=== PATIENT | female | born 1930 | race Caucasian/White ===

== ENCOUNTER 2016-10-01 00:16 | Emergency (ER) | payer MEDICARE, BC ==
[2016-10-01 00:32] VITALS: BP 160/76
--- OUTSIDE RECORDS SUMMARY | 2016-10-01 00:46 | XMS REPORT | Continuity of Care Document ---
:1930 Author Organization [facility] ([facility]) Address [address] [place] [address] Phone [phone] Care Team Providers Name Role Phone Héctor Monroe Primary Care Provider [phone] Source Comments This disclosure is being made pursuant to the Care Everywhere program, applicable federal and state laws, and may not contain all informaitonavailable regarding this patient.[facility] ([facility]) Active Allergies and Adverse Reactions Allergen Noted Date Severity Reactions Comments Amoxicillin 07/01/2016 Rash Cephalosporins 07/01/2016 Rash Ciprofloxacin 07/01/2016 Rash Clindamycin 07/01/2016 Rash Penicillins 08/14/2010 Nausea & Vomiting,Flushing Prednisone Urticaria (Hives),Rash Shellfish Derived 07/01/2016 Rash Tramadol 07/01/2016 Rash Current Medications Prescription Sig. Disp. Refills Start Date End Date Status clopidogrel (PLAVIX) 75 take 75 mg by mouth Active mg tablet daily. aspirin 325 mg tablet take 325 mg by mouth Active daily. metFORMIN (GLUCOPHAGE) take 500 mg by mouth Active 500 mg tablet 2 times daily with meals. ropinirole (REQUIP) 1 mg take 1 mg by mouth 3 Active tablet times daily. gabapentin (NEURONTIN) Take 300 mg by mouth Active 300 mg tablet 3 times daily. ACETAMINOPHEN (TYLENOL Take by mouth as Active ARTHRITIS PO) needed. rosuvastatin (CRESTOR) Take 10 mg by mouth Active 10 mg tablet daily. isosorbide mononitrate 90 mg daily. 09/13/2014 Active (IMDUR) 30 mg CR tablet glipiZIDE 5 mg XL tablet take 1 tablet (5MG) 01/22/2011 Active by oral route every day with breakfast metoPROLol succinate 25 take 0.5 Tablet 05/19/2012 Active mg XL tablet (12.5MG) by oral route every day ramipril 5 mg capsule take 1 capsule by 09/13/2014 Active oral route every day torsemide 10 mg tablet take 5 tablet by 09/13/2014 Active ORAL route every day clopidogrel (PLAVIX) 75 take 1 tablet (75MG) 11/20/2010 Active mg tablet by oral route every day rosuvastatin (CRESTOR) take 1 tablet (10MG) 01/22/2011 Active 10 mg tablet by oral route every day warfarin 5 mg tablet Take 5 mg by mouth Active daily. Active Problems Problem Noted Date Dysplasia of cervix, unspecified 07/11/2004 Other screening mammogram 03/27/2001 Dysplasia of Cervix 03/27/2001 Overview: problem hand tire trimmer replacement for go-live --MAL Most Recent Encounters Date Type Specialty Providers Description 09/21/2016 Office Visit Family Practice Default, Other Billg - Dx: Swelling of left Defo hand (Primary Dx) Neeta Montesinos ARNP 07/01/2016 Office Visit Family Practice Lucie Landeros MD Dx: Hordeolum externum David Narvaez, left upper eyelid PA-C (Primary Dx) Social History Tobacco Use Types Packs/Day Years Used Date Never Smoker Smokeless Tobacco: Never Used Last Filed Vital Signs Vital Sign Reading Time Taken Blood Pressure 112/74 09/21/2016 2:32 PM OLAP DEVELOPER Pulse 75 09/21/2016 2:32 PM OLAP DEVELOPER Temperature 36.5 C (97.7 F) 09/21/2016 2:32 PM OLAP DEVELOPER Respiratory Rate 18 09/21/2016 2:32 PM OLAP DEVELOPER Height 1.61 m (5' 3.39") 08/15/2010 2:27 PM OLAP DEVELOPER Weight 102.059 kg (225 lb) 09/21/2016 2:32 PM OLAP DEVELOPER Body Mass Index 39.37 09/21/2016 2:32 PM OLAP DEVELOPER Oxygen Saturation 96% 09/21/2016 2:32 PM OLAP DEVELOPER Plan of Care Date Type Specialty Providers Description 11/21/2016 Wait List Med Rheumatology 11/21/2016 Appointment Med Rheumatology Ranjeet Oh MD Chief Comp: Patient [address] [place] [address] Visit [phone] (Fax) Health Maintenance Due Date Last Done Comments Hepatitis B Vaccine (1 of 3 - Primary 1930 Series) Tdap Vaccine 1943 Td Vaccine 1950 Colonoscopy 1982 Zoster Vaccine 1992 Osteoporosis Screening (DXA Bone Density) 1997 Pneumococcal Vaccine (1 of 2 - PCV13) 1997 Lipid Disorder Screening 08/15/2015 08/15/2010, 01/24/2000 Influenza Vaccine: Seasonal (#1) 03/12/2016 Results from Last 3 Months Not on file
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
== END 2016-10-01 01:45 | disposition home or self-care (01) ==
LOC: ER 00:16
PROC: 0HQUXZZ (ICD-10-PCS; principal; 2016-10-01)
DX: S21.012A Laceration without foreign body of left breast, initial encounter (principal); W01.110A Fall on same level from slipping, tripping and stumbling with subsequent striking against sharp glass, initial encounter; Y92.009 Unspecified place in unspecified non-institutional (private) residence as the place of occurrence of the external cause

== ENCOUNTER 2017-03-03 17:12 | Observation (INO) | payer MEDICARE, BC ==
--- NOTE | 2017-03-03 17:32 | ERNOTE ---
Chest Pain/Cardiac HPI Date of Service: 03/03/17 Chief Complaint: Chest Pain Time Seen by Provider: 03/03/17 17:31 Source: patient, family Exam Limitations: no limitations Immunizations: IMMUNIZATION HX Immunizations Up to Date Yes History of Influenza Vaccine Yes Allergies/Adverse Reactions: Allergies amoxicillin [Amoxicillin] Allergy (Severe, Verified 03/03/17 17:26) Anaphylaxis cephalexin [Cephalexin] Allergy (Severe, Verified 03/03/17 17:26) Anaphylaxis ciprofloxacin [From Cipro] Allergy (Severe, Verified 03/03/17 17:26) Anaphylaxis ciprofloxacin HCl [From Cipro] Allergy (Severe, Verified 03/03/17 17:26) Anaphylaxis prednisone Allergy (Severe, Verified 03/03/17 17:26) Anaphylaxis shellfish derived Allergy (Severe, Verified 03/03/17 17:26) Anaphylaxis tramadol HCl [From Ultram] Allergy (Severe, Verified 03/03/17 17:26) Anaphylaxis Penicillins Allergy (Verified 03/03/17 17:26) butorphanol tartrate [From Stadol] Adverse Reaction (Verified 03/03/17 17:26) Other Home Medications: HOME MEDICATIONS Allopurinol [Zyloprim] 300 mg PO BID 03/03/17 [Last Taken Unknown] Amiodarone HCl [Cordarone] 200 mg PO DAILY 03/03/17 [Last Taken Unknown] Cetirizine HCl [Zyrtec] 10 mg PO DAILY 03/03/17 [Last Taken Unknown] Cholecalciferol [Vitamin D] 1,000 unit PO DAILY 03/03/17 [Last Taken Unknown] Colchicine [Colcrys] 0.6 mg PO DAILY 03/03/17 [Last Taken Unknown] Ferrous Gluconate 325 mg PO DAILY 03/03/17 [Last Taken Unknown] Fluconazole [Diflucan] 150 mg PO DAILY 03/03/17 [Last Taken Unknown] HYDROcodone/ACETAMINOPHEN [[place] 5-325] 1 - 2 tab PO Q6H PRN 03/03/17 [Last Taken Unknown] Levothyroxine Sodium [Levo-T] 25 mcg PO DAILY 03/03/17 [Last Taken Unknown] Metoprolol Succinate [Toprol Xl] 12.5 mg PO DAILY 03/03/17 [Last Taken Unknown] Mupirocin Calcium [Bactroban] 15 gm TP DAILY 03/03/17 [Last Taken Unknown] Ramipril [Altace] 5 mg PO DAILY 03/03/17 [Last Taken Unknown] Rosuvastatin Calcium [Crestor] 10 mg PO DAILY 03/03/17 [Last Taken Unknown] [place] Oil/[place]-3 Fatty Acids [Fish Oil] 1,200 mg PO BID 03/03/17 [Last Taken Unknown] Torsemide 100 mg PO DAILY 03/03/17 [Last Taken Unknown] Warfarin Sodium [Coumadin] 5 mg PO DAILY 03/03/17 [Last Taken Unknown] glipiZIDE [Glipizide] 5 mg PO DAILY 03/03/17 [Last Taken Unknown] Narrative: Yesterday about 10 AM began to feel some chest discomfort and congestion. By noon, loss of appetite and a little nausea. By 2 or three am today, even worse and SOB. Through today, worse yet. Has been gaining weight for at least a few days. Is visiting family here from [facility]. History of CHF. Timing: getting worse Severity/Quality: moderate Location: substernal Chest Pain Radiation: no radiation Activities at Onset: none Modifying Factors - Improves: Present: other - upright Modifying Factors - Worsens: Present: other - supine Nitro Today/Relief: no nitro taken today Aspirin Treatment Today: no aspirin today Associated Symptoms: Present: cough Prior Chest Pain/Cardiac Workup: Reports: other Prior Treatment: Denies: currently on antibiotics Review of Systems - Review of Systems Constitutional: Present: malaise EYE: Present: no symptoms reported ENT: Present: no symptoms reported Respiratory: Present: See HPI Cardiology: Present: See HPI Gastrointestinal/Abdominal: Present: See HPI Genitourinary: Present: no symptoms reported Musculoskeletal: Present: no symptoms reported Skin: Present: no symptoms reported Neurological: Present: no symptoms reported Endocrine: Present: no symptoms reported Hematologic/Lymphatic: Present: no symptoms reported Psych: Present: no symptoms reported All Other Systems: All systems neg except as marked - Patient's Past Medical History Patient History - Medical: Arthritis, Diabetes Type 2, Osteoporosis Patient History - Cardiac/Respiratory: Atrial Fibrillation, Asthma, Hypertension , Hyperlipidemia Patient History - Cancer: No Hx of Cancer Patient History - Surgical Procedures: Cardiac stent, Total Knee Replacement Patient History - Other: None - Social History Living Situations: home Psych History: No pertinent hx Smoking Status: Never smoker Have you smoked in the past 12 months: No Alcohol Use: sober - Immunizations Immunizations Up to Date: Yes History of Influenza Vaccine: Yes Physical Exam - Physical Exam General Appearance: Present: wd/wn, alert, no apparent distress Head Exam: Present: normal inspection Eye Exam: Normal inspection: bilateral, PERRL: bilateral, EOMI: bilateral Ears, Nose, Throat: Present: normal ENT inspection Neck: Present: normal inspection Respiratory: Present: no respiratory distress, rales Cardiovascular/Chest: Present: no murmur, irregularly irregular Gastrointestinal/Abdominal: Present: normal bowel sounds, nontender, nondistended, soft, no organomegaly Back Exam: Present: normal inspection Extremity Exam: Present: pedal edema Neurological Exam: Present: alert, oriented, normal mood/affect Skin Exam: Present: normal color, warm/dry ED Progress - Results and Orders Patient's Lab Results:: I have reviewed the patient's lab results. - Vital Signs Patient's Vital Signs:: I have reviewed the patient's vital signs. Vital Signs: Vital Signs 03/03/17 03/03/17 17:22 17:26 Temperature 36 C L Pulse Rate 68 68 Respiratory 19 Rate Blood Pressure 117/53 O2 Sat by Pulse 95 Oximetry - EKG EKG: NSR EKG read: Interp. by me - marked LAD, RBBB, old anteroseptal W[place] - X-Ray X-Ray #1 X-Ray: chest Interpretation: Interp. by me - prominent vasculature, especially on the left - Progress/Reassessment Chief Complaint: Chest Pain Progress:: Unchanged Progress Note-Subjective: 03/03/17 19:[address] Brady who agrees to accept this patient as an admission to an observation bed. She requests a garces, 2 units of prbc's, zaroxolyn followed 1/2 hour later by 200 mg of IV lasix plus at the same time 100 mg of po spironolactone. Departure - Departure Clinical Impression: Hypercoagulable state Acute congestive heart failure Qualifiers: Congestive heart failure type: systolic Qualified Code(s): I50.21 - Acute systolic (congestive) heart failure Anemia Qualifiers: Anemia type: unspecified type Qualified Code(s): D64.9 - Anemia, unspecified Disposition: [facility] Condition: Fair
[2017-03-03 17:44] LABS: Hematocrit 25.5 % (37.0-47.0); Mean Cell Volume 96.2 fl (78-100); Mean Corpuscular Hemoglobin 29.1 pg (27-31); Mean Corpuscular Hgb Conc 30.2 g/dl (32-36); Mean Platelet Volume 10.5 fl (6.0-9.5); Neutrophil # 7.3 K/mm3 (1.3-6.0); Neutrophil % 84.8 % (42-75.0); Platelet Count 155 K/mm3 (150-450); Red Blood Count 2.65 M/mm3 (4.2-5.4); Red Cell Distribution Width 16.9 % (11.5-14.0); White Blood Count 8.5 K/mm3 (4.0-10.5)
[2017-03-03 17:47] LABS: Hemoglobin 7.7 gm/dL (12.5-16.0)
[2017-03-03] MEDS ORDERED: FUROSEMIDE 10 MG/ML VIAL IV ONE (17:50)
[2017-03-03 17:56] LABS: Prothrombin Time (Patient) 49.4 Seconds (9.4-11.4)
[2017-03-03 18:06] LABS: Anion Gap 10.1 mmol/L (6.8-13.8); BUN/Creatinine Ratio 19.9 (9.0-21.6); Bilirubin, Total 0.7 mg/dL (0.0-1.1); Calcium * 8.5 mg/dL (7.9-10.9); INR 4.75 INR (0.90-1.10); Partial Thrombolplastin Time 61.6 Seconds (24-32); Potassium 4.1 mmol/L (3.4-4.6); Total Protein 6.9 gm/dL (6.2-8.2); Troponin I 0.029 ng/ml (0.00-0.10)
[2017-03-03] MEDS ORDERED: FUROSEMIDE 10 MG/ML VIAL ONE (18:22)
[2017-03-03] MEDS ORDERED: METOLAZONE 2.5 MG TABLET PO STA (19:33)
[2017-03-03] MEDS ORDERED: SPIRONOLACTONE 100 MG TABLET PO STA (19:35)
[2017-03-03] MEDS ORDERED: FUROSEMIDE 10 MG/ML VIAL IV STA (19:35)
[2017-03-03] MEDS ORDERED: FUROSEMIDE 10 MG/ML VIAL IV SCH (20:00)
[2017-03-03] MEDS ORDERED: FUROSEMIDE 10 MG/ML VIAL IV PRN ×2 (20:01→20:56)
[2017-03-03] MEDS ORDERED: SPIRONOLACTONE 25 MG TABLET ONE (21:00)
--- NOTE | 2017-03-03 22:05 | HP ---
Chief Complaint - Chief Complaint Date of Service: 03/03/17 Time of Service: 22:05 Chief Complaint: chest pain, shortness of breath History of Present Illness: Radha is an 86 year old female visiting family from [place] with a PMH of CAD (s/p anterior [place] 10/2010 with stent to LAD), diastolic CHF, chronic afib ( currently in SR on amiodarone and coumadin), vertebral artery stenosis (right artery totally occluded, on Plavix), HTN, CKD - Stage 3, ISHAN (on cpap), DM, HLD , chronic iron deficiency anemia, valvular heart disease (mod and mild to mod MR), pulmonary HTN (RSVP 44) and Diabetes (on glipizide) who presented to the ER today with chest pain and dyspnea for 12-18 hours. Also c/o weight gain. ER eval revealed hgb/hct 7.7/25.5, creatinine 1.81, BUN 36, LFTs wnl, INR supratherpeutic at 4.75, BNP 7012, trop 0.029 and chest xray showing no acute cardiopulmonary changes. Patient admitted for acute on chronic anemia and diastolic heart failure exacerbation. of note, last echo at [facility] 01/11/17 showed mild LVH with ef 55%, distal anterior wall and septum are hypokinetic, LA severely dilated, mild to mod MR, mild TR, pulm HTN with RVSP 44, mod to sev aortic valve calcification and mod . EKG done at [facility] 01/24/17 showed NSR with LAFB and RBBB. Last stress test was 08/[address] [facility] which was negative for stress induced ischemia. - Patient's Past Medical History Patient History - Medical: Anemia - chronic iron deficiency anemia, Arthritis, Diabetes Type 2, Hypothyroidism - on synthroid, Obesity, Osteoporosis, Renal Disease - chronic kidney disease - stage 3, Other - gout - on allopurinol and colchicine Patient History - Cardiac/Respiratory: Atrial Fibrillation, Asthma, Coronary Heart Disease - s/p stent LAD 10/2010, CHF, Hypertension, Hyperlipidemia, Myocardial Infarction - anterior [place] 10/2010, Peripheral Vascular Disease - with vertebral artery stenosis - right artery totally occulded, Valvular Heart Disease - mild to mod MR, mild TR, mod , Home O2 Use, CPAP/BiPAP Home Use, Sleep Apnea, Other - pulmonary HTN Patient History - Cancer: No Hx of Cancer Patient History - Surgical Procedures: Cardiac stent - LAD 10/2010, Total Knee Replacement Patient History - Other: None LMP (females 10-50): Menopausal - Family History Father Family History - Medical: Family History - Cardiac/Respiratory: Myocardial Infarction Family History - Cancer: No pertinent family hx Mother Family History - Medical: Family History - Cardiac/Respiratory: Myocardial Infarction Family History - Cancer: No pertinent family hx Children Family History - Cardiac/Respiratory: Deep Vein Thrombosis - son - Social History Living Situations: home Abuse History: No History of abuse Psych History: No pertinent hx Smoking Status: Never smoker Have you smoked in the past 12 months: No Do you dip or chew tobacco: No Alcohol Use: sober Drug Use: none - Immunizations Immunizations Up to Date: Yes History of Influenza Vaccine: Yes Review Of Systems (GEN) - Review of Systems Generalized/Overall Review: Present: Malaise. Absent: Fever EENTM: Present: No Symptoms Reported Respiratory: Present: Shortness of Breath Cardiac: Present: Chest Pain - presented in ER, resolved since admission Abdominal: Present: No Symptoms Reported Genitourinary: Present: No Symptoms Reported Musculoskeletal: Present: No Symptoms Reported Neurological: Present: No Symptoms Reported Skin: Present: No Symptoms Reported Endocrine: Present: No Symptoms Reported Misc: All systems neg except as marked Immunizations: IMMUNIZATION HX Immunizations Up to Date Yes History of Influenza Vaccine Yes Allergies/Adverse Reactions: Allergies Allergy/AdvReac Type Severity Reaction Status Date / Time amoxicillin [Amoxicillin] Allergy Severe Anaphylaxis Verified 03/03/17 17:26 cephalexin [Cephalexin] Allergy Severe Anaphylaxis Verified 03/03/17 17:26 ciprofloxacin [From Cipro] Allergy Severe Anaphylaxis Verified 03/03/17 17:26 ciprofloxacin HCl Allergy Severe Anaphylaxis Verified 03/03/17 17:26 [From Cipro] prednisone Allergy Severe Anaphylaxis Verified 03/03/17 17:26 shellfish derived Allergy Severe Anaphylaxis Verified 03/03/17 17:26 tramadol HCl [From Ultram] Allergy Severe Anaphylaxis Verified 03/03/17 17:26 Penicillins Allergy Verified 03/03/17 17:26 butorphanol tartrate AdvReac Other Verified 03/03/17 17:26 [From Stadol] Home Medications: HOME MEDICATIONS Allopurinol [Zyloprim] 300 mg PO BID 03/03/17 [Last Taken Unknown] Amiodarone HCl [Cordarone] 200 mg PO DAILY 03/03/17 [Last Taken Unknown] Cetirizine HCl [Zyrtec] 10 mg PO DAILY 03/03/17 [Last Taken Unknown] Cholecalciferol [Vitamin D] 1,000 unit PO DAILY 03/03/17 [Last Taken Unknown] Colchicine [Colcrys] 0.6 mg PO DAILY 03/03/17 [Last Taken Unknown] Ferrous Gluconate 325 mg PO DAILY 03/03/17 [Last Taken Unknown] Fluconazole [Diflucan] 150 mg PO DAILY 03/03/17 [Last Taken Unknown] HYDROcodone/ACETAMINOPHEN [[place] 5-325] 1 - 2 tab PO Q6H PRN 03/03/17 [Last Taken Unknown] Levothyroxine Sodium [Levo-T] 25 mcg PO DAILY 03/03/17 [Last Taken Unknown] Metoprolol Succinate [Toprol Xl] 12.5 mg PO DAILY 03/03/17 [Last Taken Unknown] Mupirocin Calcium [Bactroban] 15 gm TP DAILY 03/03/17 [Last Taken Unknown] Ramipril [Altace] 5 mg PO DAILY 03/03/17 [Last Taken Unknown] Rosuvastatin Calcium [Crestor] 10 mg PO DAILY 03/03/17 [Last Taken Unknown] [place] Oil/[place]-3 Fatty Acids [Fish Oil] 1,200 mg PO BID 03/03/17 [Last Taken Unknown] Torsemide 100 mg PO DAILY 03/03/17 [Last Taken Unknown] Warfarin Sodium [Coumadin] 5 mg PO DAILY 03/03/17 [Last Taken Unknown] glipiZIDE [Glipizide] 5 mg PO DAILY 03/03/17 [Last Taken Unknown] Exam - Exam Vital Signs: Vital Signs - Last Taken Temp 36.5 C 03/03/17 20:08 Pulse 70 03/03/17 21:04 Resp 18 03/03/17 20:08 BP 102/48 03/03/17 21:04 Pulse Ox 95 03/03/17 20:08 Constitutional: Present: Alert, Cooperative, No distress, Elderly ENT Exam: Present: hearing grossly normal Eye Exam: bilateral eye: normal inspection Neck: Present: full range of motion, supple Breasts: Present: Exam deferred Respiratory: Present: no respiratory distress, no accessory muscle use, rales - bases Cardiovascular/Chest: Present: normal peripheral pulses, regular rate, rhythm, systolic murmur - 2/6 Peripheral Pulses: dorsalis-pedis (R): 2+, dorsalis-pedis (L): 2+, radial (R): 2 +, radial (L): 2+ Abdomen: Present: soft, nontender, nondistended /Rectal: Present: Exam deferred Extremity: Present: no calf tenderness, lower extremity edema - +1 lower extremity edema bilat Skin Exam: Present: warm/dry, no cyanosis, pallor Diagnostic Studies: Abnormal Lab Results 03/03/17 Range/Units 19:40 Crossmatch See Detail Laboratory Results WBC 8.5 K/mm3 (4.0-10.5) 03/03/17 17:36 RBC 2.65 M/mm3 (4.2-5.4) L 03/03/17 17:36 Hgb 7.7 gm/dL (12.5-16.0) L* 03/03/17 17:36 Hct 25.5 % (37.0-47.0) L 03/03/17 17:36 MCV 96.2 fl (78-100) 03/03/17 17:36 MCH 29.1 pg (27-31) 03/03/17 17:36 MCHC 30.2 g/dl (32-36) L 03/03/17 17:36 RDW 16.9 % (11.5-14.0) H 03/03/17 17:36 Plt Count 155 K/mm3 (150-450) 03/03/17 17:36 MPV 10.5 fl (6.0-9.5) H 03/03/17 17:36 Immature Gran % (Auto) 0.50 % (0.001-0.429) H 03/03/17 17:36 Immature Gran # (Auto) 0.04 K/mm3 (0.000-0.0310) H 03/03/17 17:36 Neutrophils % 84.8 % (42-75.0) H 03/03/17 17:36 Lymphocytes % 9.3 % (20-51) L 03/03/17 17:36 Monocytes % 5.3 % (0.0-9) 03/03/17 17:36 Eosinophils % 0.0 % (0.0-3.0) 03/03/17 17:36 Basophils % 0.1 % (0.0-1.0) 03/03/17 17:36 Nucleated RBC % 0.0 k/mm3 (0-1) 03/03/17 17:36 Neutrophils # 7.3 K/mm3 (1.3-6.0) H 03/03/17 17:36 Lymphocytes # 0.8 k/mm3 (1.5-3.5) L 03/03/17 17:36 Monocytes # 0.5 k/mm3 (0.0-1.0) 03/03/17 17:36 Eosinophils # 0.0 k/mm3 (0.0-0.7) 03/03/17 17:36 Absolute Basophils 0.0 k/mm3 (0.0-0.1) 03/03/17 17:36 PT 49.4 Seconds (9.4-11.4) H 03/03/17 17:36 INR (Anticoag Therapy) 4.75 INR (0.90-1.10) H* 03/03/17 17:36 PTT ([place]) 61.6 Seconds (24-32) H 03/03/17 17:36 Sodium 141 mmol/L (132-142) 03/03/17 17:36 Plasma Sodium 142 mmol/L (130-142) 03/03/17 17:36 Potassium 4.1 mmol/L (3.4-4.6) 03/03/17 17:36 Chloride 104 mmol/L (97-106) 03/03/17 17:36 Carbon Dioxide 31.0 mmol/L (24-32.6) 03/03/17 17:36 Anion Gap 10.1 mmol/L (6.8-13.8) 03/03/17 17:36 BUN 36 mg/dL (3-23) H 03/03/17 17:36 Creatinine 1.81 mg/dL (0.4-1.4) H 03/03/17 17:36 Est GFR (Non-Af Amer) 28 mL/min (60-130) L D 03/03/17 17:36 BUN/Creatinine Ratio 19.9 (9.0-21.6) 03/03/17 17:36 Random Glucose 176 mg/dL (70-110) H 03/03/17 17:36 Calcium 8.5 mg/dL (7.9-10.9) 03/03/17 17:36 Calcium Adj for Albumin 9.0 mg/dL (8.4-10.2) 03/03/17 17:36 Total Bilirubin 0.7 mg/dL (0.0-1.1) 03/03/17 17:36 AST 16 U/L (0-48) 03/03/17 17:36 ALT 17 U/L (19-67) L 03/03/17 17:36 Alkaline Phosphatase 85 U/L (50-170) 03/03/17 17:36 Troponin I 0.029 ng/ml (0.00-0.10) 03/03/17 17:36 B-Natriuretic Peptide 7012 pg/mL (5-550) H 03/03/17 17:36 Total Protein 6.9 gm/dL (6.2-8.2) 03/03/17 17:36 Albumin 3.0 gm/dl (3.4-5.0) L 03/03/17 17:36 Blood Type B Positive 03/03/17 19:40 Antibody Screen Negative 03/03/17 19:40 Crossmatch See Detail 03/03/17 19:40 Assessment/Plan - Narrative Narrative: Anemia, acute on chronic - chronic history of iron deficiency anemia - takes ferrous sulfate 325 mg daily - continue while admitted - ? etiology of current anemia - heme check all stools - transfuse 2 units PRBCs tonight - split 200 mg lasix dose to 100 mg iv before and 100 mg iv after unit of blood due to diastolic CHF exac. - recheck labs in am. - currently on dual blood thinners Plavix and Coumadin - hold coumadin due to supratherapeutic INR Afib - 12 lead EKG shows NSR with LAFB and RBBB - similar to 12 lead obtained from [facility] done 01/2017. - overnight telemetry shows NSR with heart rate of 60 with LAFB and RBBB - currently on Amiodarone 200 mg Daily - coumadin supratherapeutic at 4.75 - hold coumadin - ? since on Amiodarone and maintaining SR - ? d/c coumadin - patient also high risk for falls (daughter has informed me of 2 in the last couple of months) - in addition, daughter states pcp has trouble maintaining INR btwn 2-3 - if d/c is not an option, ? change to eliquis or similar ? - continous telemetry monitoring Diastolic heart failure - with pulmonary HTN (will also increase likelyhood to fluid overload) - with valvular heart disease (mild to mod MR, mod , mild TR) - 60 mg IV lasix given in ER - total of 200 mg IV lasix given tonight with 2.5 mg zaroxolyn and 100 mg spironolactone. - will need higher dose of lasix due to CKD and 2 units of blood to be transfused. - daily weights - strict I&Os - CHF teaching - cont demadex 100 mg po daily (home med) CAD - history of anterior [place] with stent to LAD 10/2010 - initial trop wnl - check another troponin this am. - EKG shows no acute change. CKD - Stage 3 - creatinine 1.81 (baseline unknown) - hold ramipril for now. Diabetes - check blood sugars with sliding scale insulin as needed - cont glipizide 5 mg daily HTN - cont toprol xl 12.5 mg daily - vital signs q 4 hours Chronic Stable medical conditions - hypothyroidism - synthroid 25 mcg daily - PVD with Rt vertebral artery stenosis - plavix 75 mg daily - HLD - crestor 5 mg daily - gout - allopurinol 300 mg bid - colchicine 0.6 mg daily - ISHAN on cpap Code status: full code VTE: none - supratheraupeutic INR on coumadin GI proph: protonix po - Assessment/Plan (1) Anemia Problem: Acute Qualifiers: Anemia type: unspecified type Qualified Code(s): D64.9 - Anemia, unspecified (2) CHF (congestive heart failure) Problem: Acute Qualifiers: Congestive heart failure type: diastolic Congestive heart failure chronicity: acute on chronic Qualified Code(s): I50.33 - Acute on chronic diastolic (congestive) heart failure (3) Hypercoagulable state Problem: Acute (4) Afib Problem: Chronic Qualifiers: Atrial fibrillation type: paroxysmal Qualified Code(s): I48.0 - Paroxysmal atrial fibrillation (5) HTN (hypertension) Problem: Chronic Qualifiers: Hypertension type: essential hypertension Qualified Code(s): I10 - Essential (primary) hypertension (6) Vertebral artery stenosis Problem: Chronic Qualifiers: Laterality: right Qualified Code(s): I65.01 - Occlusion and stenosis of right vertebral artery (7) CKD (chronic kidney disease) stage 3, GFR 30-59 ml/min Problem: Chronic (8) ISHAN on CPAP Problem: Chronic (9) HLD (hyperlipidemia) Problem: Chronic Qualifiers: Hyperlipidemia type: unspecified Qualified Code(s): E78.5 - Hyperlipidemia , unspecified (10) Diabetes Problem: Chronic Qualifiers: Diabetes mellitus type: type 2 Diabetes mellitus complication status: with kidney complications Diabetes mellitus complication detail: with chronic kidney disease Diabetes mellitus detention insulin use: without detention use Chronic kidney disease stage: stage 3 (moderate) Qualified Code(s): E11.22 - Type 2 diabetes mellitus with diabetic chronic kidney disease; N18.3 - Chronic kidney disease, stage 3 (moderate) (11) Hypothyroid Problem: Chronic Qualifiers: Hypothyroidism type: acquired Qualified Code(s): E03.9 - Hypothyroidism, unspecified (12) CAD (coronary artery disease) Problem: Chronic Qualifiers: Coronary Disease-Associated Artery/Lesion type: [place] artery [place] vs. transplanted heart: [place] heart Associated angina: angina presence unspecified Qualified Code(s): I25.10 - Atherosclerotic heart disease of [place] coronary artery without angina pectoris (13) Valvular heart disease Problem: Chronic
[2017-03-04] MEDS ORDERED: ACETAMINOPHEN 325 MG TABLET PO PRN (03:47)
[2017-03-04] MEDS ORDERED: PANTOPRAZOLE SODIUM 40 MG TABLET.EC PO SCH (07:00)
[2017-03-04 08:28] LABS: Hematocrit 33.3 % (37.0-47.0); Hemoglobin 10.4 gm/dL (12.5-16.0); Mean Cell Volume 94.9 fl (78-100); Mean Corpuscular Hemoglobin 29.6 pg (27-31); Mean Corpuscular Hgb Conc 31.2 g/dl (32-36); Mean Platelet Volume 10.7 fl (6.0-9.5); Neutrophil # 5.9 K/mm3 (1.3-6.0); Neutrophil % 80.8 % (42-75.0); Platelet Count 149 K/mm3 (150-450); Red Blood Count 3.51 M/mm3 (4.2-5.4); Red Cell Distribution Width 16.4 % (11.5-14.0); White Blood Count 7.3 K/mm3 (4.0-10.5)
[2017-03-04 08:42] LABS: ALT 19 U/L (19-67); AST 18 U/L (0-48); Albumin * 3.3 gm/dl (3.4-5.0); Alkaline Phosphatase * 89 U/L (50-170); Anion Gap 10.9 mmol/L (6.8-13.8); BUN/Creatinine Ratio 19.3 (9.0-21.6); Blood Urea Nitrogen 39 mg/dL (3-23); Ca. Corrected For Albumin 9.2 mg/dL (8.4-10.2); Carbon Dioxide 31.8 mmol/L (24-32.6); Chloride 101 mmol/L (97-106); Glucose * 151 mg/dL (70-110); Potassium 3.7 mmol/L (3.4-4.6); Sodium 140 mmol/L (132-142); Total Protein 7.5 gm/dL (6.2-8.2); Troponin I Less than 0.017 ng/ml (0.00-0.10)
[2017-03-04 08:45] LABS: Prothrombin Time (Patient) 50.2 Seconds (9.4-11.4)
[2017-03-04 08:49] LABS: INR 4.83 INR (0.90-1.10)
[2017-03-04] MEDS ORDERED: METOPROLOL SUCCINATE 25 MG TABLET.SA PO SCH (09:00)
[2017-03-04] MEDS ORDERED: COLCHICINE 0.6 MG TABLET PO SCH (09:00)
[2017-03-04] MEDS ORDERED: glipiZIDE 5 MG TABLET PO SCH (09:00)
[2017-03-04] MEDS ORDERED: TORSEMIDE 20 MG TABLET PO SCH (09:00)
[2017-03-04] MEDS ORDERED: ROSUVASTATIN CALCIUM 10 MG TABLET PO SCH (09:00)
[2017-03-04] MEDS ORDERED: AMIODARONE HCL 200 MG TABLET PO SCH (09:00)
[2017-03-04] MEDS ORDERED: CHOLECALCIFEROL 1,000 UNIT CAPSULE PO SCH (09:00)
[2017-03-04] MEDS ORDERED: LORATADINE 10 MG TABLET PO SCH (09:00)
[2017-03-04] MEDS ORDERED: ALLOPURINOL 100 MG TABLET PO SCH (09:00)
[2017-03-04] MEDS ORDERED: LEVOTHYROXINE SODIUM 25 MCG TABLET PO SCH (09:00)
[2017-03-04] MEDS ORDERED: FERROUS SULFATE 325 MG TABLET PO SCH (09:00)
--- NOTE | 2017-03-04 11:31 | DS ---
<Ignacio Brady - Last Filed: 03/04/17 15:27> (1) Acute on chronic diastolic congestive heart failure Diagnosis(s): HFpEF Problem: Acute (2) Anemia Problem: Acute QualifierTitle: Anemia type: unspecified type Qualified Code(s): D64.9 - Anemia, unspecified (3) CKD (chronic kidney disease) stage 3, GFR 30-59 ml/min Problem: Chronic (4) Chronic atrial fibrillation Diagnosis(s): in NSR now. Problem: Acute Procedures Performed: none Discharge Disposition: Home self care Disposition: Home self-care Condition: Undetermined Discharge Activity: Activity as tolerated Discharge Diet: Low salt, Low fat/chol, High Fiber Problem Oriented Discharge Instructions to Patient/Family: Anemia, Nonspecific , Blood Transfusion, Care After, [id number] Additional Patient Instructions (free text): Fax records from stay including discharge to Dr Monroe at [phone]. Follow up with Dr Monroe at 8:50am on 03/06/17. DO NOT TAKE COUMADIN. YOUR INR WILL BE CHECKED AT THIS APPOINTMENT AND YOUR COUMADIN WILL BE ADDRESSED AT THIS TIME. Changes in medications: vitamin D3 increased from 1000 units to 2000 units daily with food. take ramipril in AM and metoprolol ER in PM. Start toresemide on 03/05/17. Prescriptions (Any new or edited meds): Cholecalciferol [Vitamin D] 2,000 unit PO DAILY #.1 capsule Torsemide 100 mg PO DAILY #.1 tablet Complete Home Medications List: Complete Home Medication List: Allopurinol [Zyloprim] 300 mg PO BID 03/03/17 Amiodarone HCl [Cordarone] 200 mg PO DAILY 03/03/17 Cetirizine HCl [Zyrtec] 10 mg PO DAILY 03/03/17 Colchicine [Colcrys] 0.6 mg PO DAILY 03/03/17 Ferrous Gluconate 325 mg PO DAILY 03/03/17 Fluconazole [Diflucan] 150 mg PO DAILY 03/03/17 HYDROcodone/ACETAMINOPHEN [[place] 5-325] 1 - 2 tab PO Q6H PRN 03/03/17 Levothyroxine Sodium [Levo-T] 25 mcg PO DAILY 03/03/17 Metoprolol Succinate [Toprol Xl] 12.5 mg PO DAILY 03/03/17 Mupirocin Calcium [Bactroban] 15 gm TP DAILY 03/03/17 Ramipril [Altace] 5 mg PO DAILY 03/03/17 Rosuvastatin Calcium [Crestor] 10 mg PO DAILY 03/03/17 [place] Oil/[place]-3 Fatty Acids [Fish Oil] 1,200 mg PO BID 03/03/17 glipiZIDE [Glipizide] 5 mg PO DAILY 03/03/17 Cholecalciferol [Vitamin D] 2,000 unit PO DAILY #.1 capsule 03/04/17 Torsemide 100 mg PO DAILY #.1 tablet 03/04/17 <Neeta Smyth - Last Filed: 03/04/17 23:53> (1) Anemia Problem: Acute Qualifiers: Anemia type: unspecified type Qualified Code(s): D64.9 - Anemia, unspecified (2) CHF (congestive heart failure) Problem: Acute Qualifiers: Congestive heart failure type: diastolic Congestive heart failure chronicity: acute on chronic Qualified Code(s): I50.33 - Acute on chronic diastolic (congestive) heart failure (3) Hypercoagulable state Problem: Acute (4) Afib Problem: Chronic Qualifiers: Atrial fibrillation type: paroxysmal Qualified Code(s): I48.0 - Paroxysmal atrial fibrillation (5) HTN (hypertension) Problem: Chronic Qualifiers: Hypertension type: essential hypertension Qualified Code(s): I10 - Essential (primary) hypertension (6) Vertebral artery stenosis Problem: Chronic Qualifiers: Laterality: right Qualified Code(s): I65.01 - Occlusion and stenosis of right vertebral artery (7) CKD (chronic kidney disease) stage 3, GFR 30-59 ml/min Problem: Chronic (8) ISHAN on CPAP Problem: Chronic (9) HLD (hyperlipidemia) Problem: Chronic Qualifiers: Hyperlipidemia type: unspecified Qualified Code(s): E78.5 - Hyperlipidemia , unspecified (10) Diabetes Problem: Chronic Qualifiers: Diabetes mellitus type: type 2 Diabetes mellitus complication status: with kidney complications Diabetes mellitus complication detail: with chronic kidney disease Diabetes mellitus longterm insulin use: without longterm use Chronic kidney disease stage: stage 3 (moderate) Qualified Code(s): E11.22 - Type 2 diabetes mellitus with diabetic chronic kidney disease; N18.3 - Chronic kidney disease, stage 3 (moderate) (11) Hypothyroid Problem: Chronic Qualifiers: Hypothyroidism type: acquired Qualified Code(s): E03.9 - Hypothyroidism, unspecified (12) CAD (coronary artery disease) Problem: Chronic Qualifiers: Coronary Disease-Associated Artery/Lesion type: [place] artery [place] vs. transplanted heart: [place] heart Associated angina: angina presence unspecified Qualified Code(s): I25.10 - Atherosclerotic heart disease of [place] coronary artery without angina pectoris (13) Valvular heart disease Problem: Chronic Description of Stay: Date of Admission: 03/03/17 Date of Discharge: 03/04/17 Radiologic Imaging: Chest xray - 03/03/17: no acute cardiopulmonary abnormalities Description of Stay: Radha is an 86 year old female visiting family from [place] with a PMH of CAD (s/p anterior [place] 10/2010 with stent to LAD), diastolic CHF, chronic afib ( currently in SR on amiodarone and coumadin), vertebral artery stenosis (right artery totally occluded, on Plavix), HTN, CKD - Stage 3, ISHAN (on cpap), DM, HLD , chronic iron deficiency anemia, valvular heart disease (mod and mild to mod MR), pulmonary HTN (RSVP 44) and Diabetes (on glipizide) who presented to the ER today with chest pain and dyspnea for 12-18 hours. Also c/o weight gain. ER eval revealed hgb/hct 7.7/25.5, creatinine 1.81, BUN 36, LFTs wnl, INR supratherpeutic at 4.75, BNP 7012, trop 0.029 and chest xray showing no acute cardiopulmonary changes. of note, last echo at the [facility] 01/11/17 showed mild LVH with ef 55%, distal anterior wall and septum are hypokinetic, LA severely dilated, mild to mod MR, mild TR, pulm HTN with RVSP 44, mod to sev aortic valve calcification and mod . EKG done at the [facility] 01/24/17 showed NSR with LAFB and RBBB. Last stress test was 08/2014 at the [facility] which was negative for stress induced ischemia. Patient admitted for acute on chronic anemia and diastolic heart failure exacerbation. Patient received lasix 60 mg iv x1 in the ER. After admission, she received spironolactone 100 mg po x1 and zaroxyln 2.5 mg po x1 with lasix 100 mg iv x1. In addition, the patient was transfused 2 units of PRBCs with lasix 100 mg iv x1 after the first unit. Her hgb on admission was 7.7 and on discharge was 10.4. INR on admission was 4.75 and on discharge was 4.83. Creatinine on admission was 1.81 and on discharge was 2.02. Troponin was negative x2. occult stool was negative x1. Patient was instructed to hold coumadin until seen by pcp / cardiology. Patient was also instructed to discuss colonscopy with pcp as it has been over 10 years since her last one. In addition, patient was instructed to start torsemide 100 mg daily (home medication) on 03/05/17. Procedures Performed: none Results and Findings: Laboratory Tests 03/03/17 17:36 WBC 8.5 Hgb 7.7 L* Hct 25.5 L Plt Count 155 INR (Anticoag Therapy) 4.75 Sodium 141 Potassium 4.1 Chloride 104 BUN 36 Creatinine 1.81 Random Glucose 176 Iron 14 TIBC 286 Transferrin % Sat 5 Total Bilirubin 0.7 Troponin I 0.029 B-Natriuretic Peptide 7012 Stool Occult Blood 03/04/17 08:20 WBC 7.3 Hgb 10.4 L Hct 33.3 L Plt Count 149 L INR (Anticoag Therapy) 4.83 Sodium 140 Potassium 3.7 Chloride 101 BUN 39 Creatinine 2.02 Random Glucose 151 Total Bilirubin 1.0 Troponin I less than 0.017 Stool Occult Blood negative
[2017-03-04 11:51] LABS: Iron 14 mcg/dL (35-120); Transferrin Sat. (% Sat.) 5 % (15-55)
[2017-03-04 12:06] VITALS: BP 123/68
== END 2017-03-04 19:23 | disposition home or self-care (01) ==
LOC: ER 17:12 → MS 19:15
PROVIDERS: ADMIT Internal Medicine; ATTEND Internal Medicine
DX: I50.33 Acute on chronic diastolic (congestive) heart failure (principal); I48.2 Chronic atrial fibrillation; Z79.01 Long term (current) use of anticoagulants; D68.59 Other primary thrombophilia; D64.9 Anemia, unspecified; D50.9 Iron deficiency anemia, unspecified; I13.0 Hypertensive heart and chronic kidney disease with heart failure and stage 1 through stage 4 chronic kidney disease, or unspecified chronic kidney disease; N18.3 Chronic kidney disease, stage 3 (moderate); E11.8 Type 2 diabetes mellitus with unspecified complications; M19.90 Unspecified osteoarthritis, unspecified site; I65.09 Occlusion and stenosis of unspecified vertebral artery; I25.10 Atherosclerotic heart disease of native coronary artery without angina pectoris; E03.9 Hypothyroidism, unspecified; M81.0 Age-related osteoporosis without current pathological fracture
CPT/HCPCS: 36415; 36430; 51702; 71020; 80053; 82272; 83540; 83550; 83880; 84484; 85025; 85610; 85730; 86850; 86900; 93005; 94660; 96374; 96376; 99285; G0378; P9016

== ENCOUNTER 2017-04-05 20:10 | Emergency (ER) | payer MEDICARE, BC ==
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
[2017-04-05] MEDS ORDERED: ONDANSETRON HCL/PF 2 MG/ML VIAL IV ONE (20:31)
[2017-04-05] MEDS ORDERED: HYDROmorphone HCL 1 MG/ML DISP.SYRIN ONE ×2 (20:32→21:57)
[2017-04-05] MEDS ORDERED: ONDANSETRON HCL/PF 2 MG/ML VIAL ONE (20:32)
[2017-04-05] MEDS ORDERED: HYDROmorphone HCL 1 MG/ML DISP.SYRIN IV ONE ×2 (20:32→21:50)
[2017-04-05 21:20] LABS: Hematocrit 31.2 % (37.0-47.0); Hemoglobin 9.6 gm/dL (12.5-16.0); Mean Cell Volume 96.6 fl (78-100); Mean Corpuscular Hemoglobin 29.7 pg (27-31); Mean Corpuscular Hgb Conc 30.8 g/dl (32-36); Mean Platelet Volume 11.5 fl (6.0-9.5); Neutrophil # 5.3 K/mm3 (1.3-6.0); Neutrophil % 76.7 % (42-75.0); Platelet Count 122 K/mm3 (150-450); Red Blood Count 3.23 M/mm3 (4.2-5.4); Red Cell Distribution Width 16.6 % (11.5-14.0)
[2017-04-05 21:33] LABS: Prothrombin Time (Patient) 15.1 Seconds (9.4-11.4)
[2017-04-05 21:34] LABS: INR 1.45 INR (0.90-1.10)
[2017-04-05 21:44] LABS: Urine Bilirubin Negative (NEGATIVE); Urine Blood Negative /ul (NEGATIVE); Urine Ketone Negative (NEGATIVE); Urine Nitrite Negative (NEGATIVE); Urine Protein Negative (NEGATIVE); Urine Specific Gravity <=1.005 SP.GR. (1.005-1.010); Urine Urobilinogen Normal (NORMAL); Urine pH 6.5 pH (5.0-7.0)
[2017-04-05 21:44] LABS: ALT 19 U/L (19-67); AST 28 U/L (0-48); Albumin * 3.4 gm/dl (3.4-5.0); Alkaline Phosphatase * 109 U/L (50-170); Anion Gap 15.3 mmol/L (6.8-13.8); BNP * 1358 pg/mL (5-550); BUN/Creatinine Ratio 22.4 (9.0-21.6); Bilirubin, Total 0.5 mg/dL (0.0-1.1); Blood Urea Nitrogen 51 mg/dL (3-23); Ca. Corrected For Albumin 8.8 mg/dL (8.4-10.2); Calcium * 8.6 mg/dL (7.9-10.9); Carbon Dioxide 27.2 mmol/L (24-32.6); Chloride 103 mmol/L (97-106); Glucose * 164 mg/dL (70-110); Potassium 4.5 mmol/L (3.4-4.6); Sodium 141 mmol/L (132-142); Total Protein 7.1 gm/dL (6.2-8.2); Troponin I Less than 0.017 ng/ml (0.00-0.10)
[2017-04-05 21:54] LABS: Urine Appearance Clear; Urine Bacteria None Seen; Urine Color Yellow; Urine RBC None Seen /hpf (0-5); Urine WBC None Seen /hpf (0-5)
[2017-04-05] MEDS ORDERED: FUROSEMIDE 10 MG/ML VIAL IV ONE (22:03)
[2017-04-05 22:04] VITALS: BP 123/59
[2017-04-05] MEDS ORDERED: FUROSEMIDE 10 MG/ML VIAL ONE (22:05)
== END 2017-04-05 22:35 | disposition short-term general hospital (02) ==
LOC: ER 20:10 → MS 21:21 → UNDOADMIN 21:21 → ER 22:35
PROC: 0T9B7ZZ Drainage of Bladder, Via Natural or Artificial Opening (ICD-10-PCS; principal; 2017-04-05)
DX: S12.591A Other nondisplaced fracture of sixth cervical vertebra, initial encounter for closed fracture (principal); S72.002A Fracture of unspecified part of neck of left femur, initial encounter for closed fracture; S42.292A Other displaced fracture of upper end of left humerus, initial encounter for closed fracture; D50.9 Iron deficiency anemia, unspecified; M19.90 Unspecified osteoarthritis, unspecified site; E11.9 Type 2 diabetes mellitus without complications; E03.9 Hypothyroidism, unspecified; N18.3 Chronic kidney disease, stage 3 (moderate); M10.9 Gout, unspecified; I48.91 Unspecified atrial fibrillation; Z79.01 Long term (current) use of anticoagulants; I25.2 Old myocardial infarction; I50.9 Heart failure, unspecified; I10 Essential (primary) hypertension; E78.5 Hyperlipidemia, unspecified; W18.09XA Striking against other object with subsequent fall, initial encounter; Z91.81 History of falling; Y93.9 Activity, unspecified; Y92.9 Unspecified place or not applicable
CPT/HCPCS: 36415; 51702; 70450; 71010; 72125; 73030; 73502; 80053; 81001; 83880; 84484; 85025; 85610; 87086; 93005; 96374; 96375; 99284; J2405